=== PATIENT | female | born 1990 | race Caucasian/White ===

== ENCOUNTER 2016-12-01 12:03 | Emergency (ER) | payer OTHER ==
[2016-12-01] MEDS ORDERED: IBUPROFEN 800 MG TABLET PO STA (12:52)
[2016-12-01] MEDS ORDERED: IBUPROFEN 800 MG TABLET PO ONE (13:03)
== END 2016-12-01 14:39 | disposition home or self-care (01) ==
DX: J06.9 Acute upper respiratory infection, unspecified (principal); B97.89 Other viral agents as the cause of diseases classified elsewhere; R07.89 Other chest pain; M54.9 Dorsalgia, unspecified; W19.XXXA Unspecified fall, initial encounter
CPT/HCPCS: 36415; 71020; 80053; 83690; 84484; 85025; 93005; 93010; 99283; 99284; A9270